=== PATIENT | female | born 1985 | race African-American/Black ===

== ENCOUNTER 2018-07-07 14:18 | Emergency (ER) | payer BC, MEDICAID ==
[~2018-07-07] VITALS: Ht 172.7 cm; Wt 86.0 kg
[2018-07-07] MEDS ORDERED: KETOROLAC 30MG/ML VIAL IM ONE (16:00)
[2018-07-07 19:00] VITALS: BP 108/65
== END 2018-07-07 19:19 | disposition home or self-care (01) ==
LOC: ER 14:27
DX: M25.512 Pain in left shoulder (principal); R03.0 Elevated blood-pressure reading, without diagnosis of hypertension
CPT/HCPCS: 73030; 96372; 99283; J1885

== ENCOUNTER 2023-02-17 07:57 | Emergency (ER) | payer BC, MEDICAID, OTHER ==
[~2023-02-17] VITALS: Ht 170.2 cm; Wt 95.0 kg
[2023-02-17 08:01] VITALS: O2SAT 100
[2023-02-17] MEDS ORDERED: ACETAMINOPHEN 325MG TABLET PO ONE (08:15)
[2023-02-17] MEDS ORDERED: IBUP-2028 PO (09:02)
[2023-02-17 10:11] VITALS: BP 119/95; PULSE 65; RESP 18; TEMP 98.7
== END 2023-02-17 10:13 | disposition home or self-care (01) ==
LOC: ER 07:57
DX: S93.402A Sprain of unspecified ligament of left ankle, initial encounter (principal); W01.0XXA Fall on same level from slipping, tripping and stumbling without subsequent striking against object, initial encounter; Y93.89 Activity, other specified; Y92.89 Other specified places as the place of occurrence of the external cause; Y99.8 Other external cause status
CPT/HCPCS: 81025; 73600; 99283; Z7610